=== PATIENT | male | born 1990 | race Two or more races ===

== ENCOUNTER 2016-10-10 02:15 | Emergency (ER) | payer SELFPAY ==
[~2016-10-10] VITALS: Ht 167.6 cm; Wt 52.6 kg
--- NOTE | 2016-10-10 02:26 | NUR ---
PT WALKED INTO ER LACERATION ON TOP OF HEAD, PT ALERT, ORIENTED X 4, NO RESP DISTRESS NOTED OR REPORTED UPON ASSESSMENT... PT STATES NO LOC...MD AT BEDSIDE...
[2016-10-10] MEDS ORDERED: NEOMY/BACITRA/POLYMYXIN B OINT UD PACKET TP ONE ×2 (03:00→03:01)
[2016-10-10] MEDS ORDERED: TDAP DIPH,PERTUSS,TET VAC/PF 0.5 ML DISP.SYRIN IM ONE ×2 (03:00→03:01)
--- NOTE | 2016-10-10 03:00 | NUR ---
Patient discharged to home in stable conditon. Written and verbal after care instructions given. Patient verbalizes understanding of instructions. Pt walked out of ER unassisted with belongings at side...
[2016-10-10 03:11] VITALS: BP 117/81
== END 2016-10-10 03:12 | disposition home or self-care (01) ==
LOC: ER 02:22
DX: S00.01XA Abrasion of scalp, initial encounter (principal); W22.8XXA Striking against or struck by other objects, initial encounter; Y93.89 Activity, other specified; Y92.89 Other specified places as the place of occurrence of the external cause; Y99.8 Other external cause status; Z88.1 Allergy status to other antibiotic agents
CPT/HCPCS: 90715; A4663

== ENCOUNTER 2019-02-13 22:09 | Emergency (ER) | payer SELFPAY ==
[~2019-02-13] VITALS: Ht 167.6 cm; Wt 55.3 kg
--- NOTE | 2019-02-13 22:20 | NUR ---
PATIENT ARRIVED AT THE ER WITH C/O OF N/V, DIARRHEA SINCE THIS AM. REPORTED VOMITTING THE FOOD HE ATE LAST NIGHT. DIARRHEA X3. NO CARDIOVASCULAR CONCERN. RESPIRATORY EVEN AND UNLABORED.
[2019-02-13 22:41] LABS: BASOPHILS % (AUTO) 0.3 % (0.0-2.0); EOSINOPHILS % (AUTO) 0.2 % (0.0-7.0); HEMATOCRIT 42.5 % (36.7-47.1); HEMOGLOBIN 14.1 g/dL (12.5-16.3); LYMPHOCYTES # (AUTO) 0.2 K/uL (20.0-40.0); LYMPHOCYTES % (AUTO) 3.5 % (20.5-51.5); MEAN CORPUSCULAR HGB CONC 33 g/dL (32.5-36.3); MEAN CORPUSCULAR VOLUME 96.1 fL (73.0-96.2); MONOCYTES # (AUTO) 0.2 K/uL (2.0-10.0); MONOCYTES % (AUTO) 2.7 % (0.0-11.0); NEUTROPHILS # (AUTO) 6.6 K/uL (1.8-8.9); NEUTROPHILS % (AUTO) 93.3 % (38.5-71.5); PLATELET COUNT (AUTO) 143 K/uL (152-348); RED BLOOD CELL COUNT(AUTO) 4.42 MIL/uL (4.06-5.63); WHITE BLOOD COUNT (AUTO) 7.1 K/uL (3.6-10.2)
[2019-02-13] MEDS ORDERED: ONDANSETRON 4 MG/2 ML VIAL ONE (22:45)
[2019-02-13] MEDS ORDERED: IV NORMAL SALINE 1000 ML BAG IV ONE (22:45)
[2019-02-13] MEDS ORDERED: ONDANSETRON 4 MG/2 ML VIAL IV ONE (22:45)
[2019-02-13 22:50] LABS: CREATININE 0.9 mg/dL (0.6-1.3); POTASSIUM 4.1 mmol/L (3.5-5.1)
--- NOTE | 2019-02-13 22:51 | NUR ---
HANDOF REPORT GIVEN TO REAGAN LOERA.
[2019-02-13 22:54] LABS: BILIRUBIN,DIRECT 0.3 mg/dL (0.0-0.2); BILIRUBIN,TOTAL 1.6 mg/dL (0.2-1.0); TOTAL PROTEIN, SERUM 7.5 g/dL (6.4-8.2)
[2019-02-13 23:08] LABS: *BILIRUBIN,URIN 1+ (NEGATIVE); *BLOOD, URINE NEGATIVE (NEGATIVE); *CLARITY,URINE CLEAR (CLEAR); *COLOR,URINE YELLOW (YELLOW); *KETONES,URINE TRACE (NEGATIVE); LEUKOCYTE ESTERASE ,URINE NEGATIVE (NEGATIVE); NITRITE, URINE NEGATIVE (NEGATIVE); UGLUCOSE NEGATIVE (NEGATIVE)
[2019-02-13 23:19] LABS: BACTERIA,URINE NONE SEEN /HPF (NONE SEEN); RBC,URINE 0-3 /HPF (0-3); SQUAMOUS EPITHELIAL CELL,UR FEW /HPF (NONE SEEN); WBC,URINE 0-3 /HPF (0-3)
[2019-02-14] MEDS ORDERED: IV NS 1000 ML 1,000 ML IV ONE (00:15)
--- NOTE | 2019-02-14 00:30 | NUR ---
DR MOLINA AT BEDSIDE MADE PATIENT AWARE OF TEST RESULTS WILL DC HOME AFTER IV FLUIDS COMPLETED.
[2019-02-14 01:11] VITALS: BP 102/73
--- NOTE | 2019-02-14 01:12 | NUR ---
Patient discharged to home in stable conditon. Written and verbal after care instructions given. Patient verbalizes understanding of instructions. Patient taken home by his mother.
== END 2019-02-14 01:25 | disposition home or self-care (01) ==
LOC: ER 22:11
DX: R19.7 Diarrhea, unspecified (principal); R11.10 Vomiting, unspecified; R10.84 Generalized abdominal pain; D69.6 Thrombocytopenia, unspecified; Z88.8 Allergy status to other drugs, medicaments and biological substances
CPT/HCPCS: 36415; 80048; 80076; 81000; 81001; 83690; 85025; 96361; 96374; 99283; J2405; A4663; J7030

== ENCOUNTER 2019-02-15 15:45 | Emergency (ER) | payer SELFPAY ==
[~2019-02-15] VITALS: Ht 167.6 cm; Wt 55.3 kg
[2019-02-15 17:06] LABS: BASOPHILS % (AUTO) 0.6 % (0.0-2.0); EOSINOPHILS % (AUTO) 0.9 % (0.0-7.0); HEMATOCRIT 40.5 % (36.7-47.1); HEMOGLOBIN 13.6 g/dL (12.5-16.3); LYMPHOCYTES # (AUTO) 1.1 K/uL (20.0-40.0); LYMPHOCYTES % (AUTO) 24.6 % (20.5-51.5); MEAN CORPUSCULAR HEMOGLOBIN 32.4 uug (23.8-33.4); MEAN CORPUSCULAR HGB CONC 33 g/dL (32.5-36.3); MONOCYTES # (AUTO) 0.4 K/uL (2.0-10.0); MONOCYTES % (AUTO) 9.8 % (0.0-11.0); NEUTROPHILS # (AUTO) 2.8 K/uL (1.8-8.9); NEUTROPHILS % (AUTO) 64.1 % (38.5-71.5); PLATELET COUNT (AUTO) 145 K/uL (152-348); RED BLOOD CELL COUNT(AUTO) 4.18 MIL/uL (4.06-5.63); WHITE BLOOD COUNT (AUTO) 4.3 K/uL (3.6-10.2)
--- NOTE | 2019-02-15 17:42 | NUR ---
Patient discharged to home in stable conditon. Written and verbal after care instructions given. Patient verbalizes understanding of instructions.
== END 2019-02-15 17:43 | disposition home or self-care (01) ==
LOC: ER 15:46
DX: D69.6 Thrombocytopenia, unspecified (principal); Z88.8 Allergy status to other drugs, medicaments and biological substances
CPT/HCPCS: 36415; 85025; A4663